=== PATIENT | male | born 1960 | race Caucasian/White ===

== ENCOUNTER 2017-06-17 12:16 | Emergency (ER) | payer BC ==
--- NOTE | 2017-06-17 13:20 | RAD ---
RIGHT HAND THREE VIEWS: HISTORY: Injury to right hand with pain. FINDINGS/IMPRESSION: The carpals appear intact. The metacarpals appear intact. The phalanges appear intact. Slight angu lation of the distal fifth metacarpal suggest an old healed fracture. No acute fracture is identifie d. POS: [facility]
== END 2017-06-17 12:50 | disposition home or self-care (01) ==
LOC: MADERS 12:16
DX: S60.221A Contusion of right hand, initial encounter (principal); W22.8XXA Striking against or struck by other objects, initial encounter

== ENCOUNTER 2019-06-16 12:07 | Emergency (ER) | payer BC ==
[~2019-06-16 12:07] MED LIST: Sodium Chloride Irrig Solution 250 ML BOT ONE
[2019-06-16] MEDS ORDERED: Lidocaine 1% 20 ML MDV ONE (12:30)
[2019-06-16] MEDS ORDERED: Adacel (T-DAP) 0.5 ML SYRINGE ONE (12:31)
== END 2019-06-16 13:30 | disposition home or self-care (01) ==
LOC: MADERS 12:07
DX: S61.216A Laceration without foreign body of right little finger without damage to nail, initial encounter (principal); Z87.891 Personal history of nicotine dependence; Z23 Encounter for immunization; W22.8XXA Striking against or struck by other objects, initial encounter
CPT/HCPCS: 12001; 90471; 90715; J2001